=== PATIENT | female | born 1945 ===

== ENCOUNTER 2019-10-27 06:19 | Day surgery (SDC) | payer MEDICARE, OTHER ==
[~2019-10-27] VITALS: Ht 157.5 cm; Wt 60.0 kg
[2019-10-27 06:50] LABS: HEMATOCRIT 36.4 % (36.0-48.0); HEMOGLOBIN 12.6 g/dL (12-16); MCH 41.2 pg (26.0-34.0); MCHC 34.6 g/dL (31.0-37.0); PLATELET COUNT 193 10x3/uL (130-400); RBC 3.06 10x6/uL (4.00-5.40); RDW 13.7 % (11.5-14.5); WBC 2.1 10x3/uL (4.8-10.8)
[2019-10-27 06:58] LABS: ANION GAP 11.7 mmol/L (8-16); CALCIUM 9.1 mg/dL (8.5-10.1); CARBON DIOXIDE 28.1 mmol/L (21.0-32.0); CREATININE - SERUM 1.5 mg/dL (0.6-1.3); POTASSIUM - SERUM 3.8 mmol/L (3.5-5.1)
[2019-10-27 07:00] LABS: APTT 25.9 SECONDS (22.8-39.4); INR 0.99 (0.85-1.17)
[2019-10-27] MEDS ORDERED: BAYER CHEWABLE81 MG PO (07:27)
[2019-10-27] MEDS ORDERED: VIT B12 (07:28)
[2019-10-27] MEDS ORDERED: OS-CAL500 MG PO (07:29)
[2019-10-27] MEDS ORDERED: LEVOXYL50 MCG PO (07:29)
[2019-10-27] MEDS ORDERED: POLY-VI-SOL W/I50 ML PO (07:30)
[2019-10-27] MEDS ORDERED: AROMASIN25 MG PO (07:31)
[2019-10-27] MEDS ORDERED: VITAMIN D 2 (07:31)
[2019-10-27] MEDS ORDERED: PEPCID AC20 MG PO (07:32)
[2019-10-27] MEDS ORDERED: [UNRECOGNIZED DRUG - OTHER] (07:33)
[2019-10-27] MEDS ORDERED: MELATONIN10 M1 PO (07:34)
[2019-10-27] MEDS ORDERED: PROTONIX40 MG PO (07:35)
[2019-10-27 07:40] VITALS: Ht 157.5 cm; Wt 60.0 kg
--- NOTE | 2019-10-27 09:12 | NUR ---
0905 IV DC'D. CATHETER TIP INTACT. NO BLEEDING AT SITE. BANDAID APPLIED.
[2019-10-27 10:25] LABS: EOSINOPHILS 3 % (0-7); LYMPHOCYTES 49 % (15-50); MONOCYTES 10 % (2-11); NEUTROPHILS 38 % (40-80); PLATELET ESTIMATE NORMAL
[2019-10-27 10:26] LABS: ANISOCYTOSIS OCC; HYPOCHROMASIA OCC
--- NOTE | 2019-10-27 12:28 | OP ---
PATIENT NAME: HORTENCIA JUSTIN MEDICAL RECORD: [id number] :47 LOCATION:[facility] ADMISSION DATE: SURGEON: ADAN WEEKS MD DATE OF OPERATION: 10/27/2019 PROCEDURE: EGD with biopsy. REFERRING PHYSICIAN: Dr. Adalid Xiong. PRIMARY CARE PHYSICIAN: Dr. Nimo Carvalho. INDICATIONS: Ms. Justin is a delightful 74-year-old woman with a history of chronic heartburn. She had been on omeprazole for several years with moderate relief; however, several months ago the omeprazole became ineffective and she was switched to pantoprazole 40 mg p.o. daily and famotidine OTC as needed at bedtime. She has had some occasional dysphagia. She is followed by Dr. Adalid Xiong secondary to history of breast cancer. She had a PET scan, which revealed mild uptake at the GE junction by history. She presents for outpatient EGD. PREMEDICATIONS: Propofol 140 mg. INSTRUMENT: Olympus video gastroscope. PROCEDURE AND FINDINGS: After receiving informed consent, Ms. Justin's posterior pharynx was anesthetized with Cetacaine spray. She was placed in left lateral decubitus position and sedated per anesthesia. After achieving adequate level of sedation, the gastroscope was introduced per orally and advanced into the duodenum without difficulty. The esophageal mucosa was notable for mild patchy erythema in the lower third of the esophagus and biopsies were taken from the GE junction and lower third of the esophagus. Specifically, no lesions were seen in the esophagus. Small hiatal hernia was present. Gastric mucosa was notable for mild prepyloric and antral erythema and antral biopsies were obtained to rule out Helicobacter pylori. There were no lesions seen in the cardia, fundus, body of the stomach or antrum. Pylorus was patent and competent. Duodenal mucosa was without erythema or ulcers, appeared normal through the second portion. Gastroscope was then withdrawn as well as tolerated the procedure well, no immediate complications. ASSESSMENT: 1. Mild erythema in the distal esophagus likely secondary to gastroesophageal reflux disease. 2. Small hiatal hernia. 3. Mild gastritis. RECOMMENDATIONS: 1. Follow up histopathology. 2. Reflux precautions. 3. Trial of Pepcid (famotidine) 40 mg p.o. b.i.d. (patient's request as she would like a trial without proton pump inhibitors). TRANSINT:[id number] Voice Confirmation ID: [id number] DOCUMENT ID: [id number] OPERATIVE REPORT [id number] HORTENCIA JUSTIN TERRI MD at 1228 CC: EDGAR XIONG MD and NIMO CARVALHO MD [id number] DICTATION DATE: 10/27/19828 BRAND STRATEGIST: 10/27/[address] [facility] [place] 10/27/19 [place] [id number] [place] [id number]
== END 2019-10-27 09:15 | disposition home or self-care (01) ==
LOC: D.OPS 06:19
PROVIDERS: Anesthesiology; ATTEND Internal Medicine Gastroenterology
DX: R12 Heartburn (principal); K29.70 Gastritis, unspecified, without bleeding; K44.9 Diaphragmatic hernia without obstruction or gangrene; E07.9 Disorder of thyroid, unspecified; K21.9 Gastro-esophageal reflux disease without esophagitis; R13.10 Dysphagia, unspecified

== ENCOUNTER 2020-10-05 06:21 | Day surgery (SDC) | payer MEDICARE, OTHER ==
[~2020-10-05] VITALS: Ht 152.4 cm; Wt 60.3 kg
--- NOTE | ~2020-10-05 | OP ---
[facility] [id number] :47 LOCATION:[facility] ADMISSION DATE: SURGEON: SULMA BINGHAM DPM DATE OF OPERATION: 10/05/2020 PREOPERATIVE DIAGNOSES: 1. Spur, dorsal aspect of the right first metatarsophalangeal joint with arthritis of the first metatarsophalangeal joint. 2. Spur, lateral left third proximal interphalangeal joint. POSTOPERATIVE DIAGNOSES: 1. Spur, dorsal aspect of the right first metatarsophalangeal joint with arthritis of the first metatarsophalangeal joint. 2. Spur, lateral left third proximal interphalangeal joint. PROCEDURES: 1. Right first MPJ cheilectomy with subchondral drilling. 2. Left lateral third PIPJ spur removal. ANESTHESIA: General with local infiltrate utilizing 15 mL total around the right first ray as well as the left third digit. The right first ray, taking approximately 11 mL with the left third digit approximately 4 mL. HEMOSTASIS: Right ankle tourniquet at 250 mmHg, left foot. There was no tourniquet. PREOPERATIVE DETAILS: The patient was taken to the OR and placed on the operating table in a supine position. The bilateral extremity was then prepped and draped in the usual aseptic technique followed by exsanguination of the right extremity and inflation of tourniquet. PROCEDURE #1: Right first MPJ cheilectomy with subchondral drilling. A #15 blade was used to create a 3.5 cm linear incision over the dorsal aspect of the first MPJ of the right foot. The incision was deepened down through subcutaneous tissue to the joint capsule. A linear capsulotomy was performed and the head of the first metatarsal was delivered. There was noted to be significant chondromalacia as well as spurring on the dorsal medial aspect of the head of the first metatarsal. There was also a significant cartilage erosion centrally and dorsally on the metatarsal head. A sagittal saw was used to resect the dorsal spurring and a K-wire was used to do some subchondral drilling in the cartilage defect. The wound was flushed. Good reduction of the spurring was noted. The capsule was then repaired with 2-0 Vicryl, the subcutaneous tissue with 4-0 Rapide and the skin was closed with 4-0 Rapide in a subcuticular technique followed by Dermabond. PROCEDURE #2: Lateral PIPJ spur removal of the left third digit. A #15 blade was used to create a small stab incision overlying the area of the spurring on the lateral PIPJ of the third digit. The soft tissue was freed from the lateral aspect of the PIPJ. A small bone rasp was then placed inside the incision and the enlarged knuckle was rasped smooth. Good clinical reduction of the enlargement was verified. The wound was flushed and the small stab incision was closed with 4-0 nylon in a simple interrupted technique. Dermabond was placed on both wounds followed by Adaptic, 4 x 4, Conform and Coban. The tourniquet on the right foot was then deflated. OPERATIVE REPORT [id number] HORTENCIA JUSTIN POSTOPERATIVE DETAILS: The patient tolerated the procedures well and left the OR with vital signs stable and vascular status at preoperative levels. The patient was transported to recovery per anesthesia in stable condition. TRANSINT:[id number] Voice Confirmation ID: [id number] DOCUMENT ID: [id number] SULMA BINGHAM DPM CC: [id number] DICTATION DATE: 10/05/20 1043 PIECE MEAT TRIMMER: 10/05/20 1328 [facility] [place] 10/05/20 [place] [id number] [place] [address]
[~2020-10-05 06:21] MED LIST: AROMASIN25 MG PO; BAYER CHEWABLE81 MG PO; IBRANCE PO; LEVOXYL50 MCG PO; MAG-OXIDE400 MG PO; MELATONIN10 M1 PO; OMEPRAZOLE40 MG PO; OS-CAL500 MG PO; PEPCID AC20 MG PO; POLY-VI-SOL W/I50 ML PO; PROTONIX40 MG PO; RESTORIL15 MG PO; VIT B12; VITAMIN D 2; [UNRECOGNIZED DRUG - OTHER]
[2020-10-05 06:56] LABS: HEMATOCRIT 35.2 % (36.0-48.0); HEMOGLOBIN 12.1 g/dL (12-16); MCH 38.5 pg (26.0-34.0); MCHC 34.4 g/dL (31.0-37.0); MCV 112.1 fL (80.0-100.0); MEAN PLATELET VOLUME 9.8 fL (7.4-10.4); RBC 3.14 10x6/uL (4.00-5.40); RDW 13.9 % (11.5-14.5)
[2020-10-05 07:11] LABS: WBC 1.6 10x3/uL (4.8-10.8)
--- NOTE | 2020-10-05 08:03 | NUR ---
SPOKE WITH DR. BEACH ABOUT WBC 1.6, STATES HER NORM FOR THE LAST FEW MONTHS HAS BEEN 2. OK TO PROCEED WITH SURGERY FROM HIS STAND POINT. INSTRUCTED PT TO COME TO HIS CLINIC THIS AFTERNOON FOR EPIGEN INJECTION.
[2020-10-05] MEDS ORDERED: HAIR/SKIN/NAILS VIT (08:51)
[2020-10-05 08:52] VITALS: Ht 152.4 cm; Wt 60.3 kg
--- NOTE | 2020-10-05 10:58 | NUR ---
6724 DR. BINGHAM ROUNDS AND GIVES INSTRUCTIONS TO PT. AND PT'S SPOUSE. ICE CAPS TO BOTH FEET, ELEVATED ON PILLOW.
== END 2020-10-05 11:55 | disposition home or self-care (01) ==
LOC: D.OPS 06:21
PROVIDERS: Anesthesiology; ATTEND Podiatrist
DX: M19.071 Primary osteoarthritis, right ankle and foot (principal); M76.891 Other specified enthesopathies of right lower limb, excluding foot; M25.775 Osteophyte, left foot